=== PATIENT | female | born 1955 | race Caucasian/White ===

== ENCOUNTER 2019-04-13 06:15 | Day surgery (SDC) | payer OTHER ==
[~2019-04-13] VITALS: Ht 160 cm; Wt 61.7 kg
[~2019-04-13 06:15] MED LIST: AMOX875T PO; LR 1,000 ML IV ONE; ceFAZolin SOD 2 GM in IV 1 EA IV ONE
[2019-04-13] MEDS ORDERED: LIDOCAINE 2% INJ 100 MG/5 ML SDV (FOR ANES.) As Ordered ONE ×2 (06:34→08:04)
[2019-04-13] MEDS ORDERED: propofoL 200 MG/20 ML VIAL As Ordered ONE ×2 (06:34→08:04)
[2019-04-13] MEDS ORDERED: MIDAZOLAM INJ 2 MG/2 ML VIAL (J2250) As Ordered ONE ×2 (06:34→08:04)
[2019-04-13] MEDS ORDERED: fentaNYL 100 MCG/2 ML INJECTION (J3010) As Ordered ONE ×2 (06:35→08:04)
[2019-04-13] MEDS ORDERED: SCOPOLAMINE 1MG TRANSDERMAL PATCH As Ordered ONE (07:55)
[2019-04-13] MEDS ORDERED: ONDANSETRON 4MG/2ML VIAL (J2405) As Ordered ONE ×2 (08:04→09:20)
[2019-04-13] MEDS ORDERED: KETOROLAC 60 MG/2 ML VIAL (J1885) As Ordered ONE (08:04)
[2019-04-13] MEDS ORDERED: dexameTHASONE 4 MG/ML 1ML VIAL (J1100) As Ordered ONE ×2 (08:04→09:20)
[2019-04-13] MEDS ORDERED: SCOPOLAMINE 1MG TRANSDERMAL PATCH TOP ONE (08:15)
[2019-04-13] MEDS ORDERED: CONRAY-60 60% 50ML VIAL (Q9961) As Ordered ONE (09:12)
[2019-04-13] MEDS ORDERED: fentaNYL 100 MCG/2 ML INJECTION (J3010) IV PRN (10:30)
[2019-04-13] MEDS ORDERED: ONDANSETRON 4MG/2ML VIAL (J2405) IV PRN (10:30)
[2019-04-13] MEDS ORDERED: LR 1,000 ML IV SCH ×2 (10:30)
[2019-04-13] MEDS ORDERED: METOCLOPRAMIDE INJ 10MG/2ML VIAL (J2765) IV PRN (10:30)
[2019-04-13] MEDS ORDERED: PERCOCET 5MG/325MG TAB PO PRN (10:30)
--- NOTE | 2019-04-13 10:34 | REP ---
C-ARM VIEW OF THE ABDOMEN: C-arm view of the abdomen is performed. Wire and ureteral catheter are noted with the proximal ends in the mid and lower pelvocaliceal system. There is some contrast opacifying the left pelvocaliceal system which is mild to moderately dilated. Fluoroscopy time 39 seconds. Electronically Signed by Franklin Dickens MD 04/14/2019 11:21 A
[2019-04-13 12:45] VITALS: BP 140/72
--- NOTE | 2019-04-13 19:43 | RO ---
DATE OF PROCEDURE: 04/13/2019 PREPROCEDURE DIAGNOSIS: Left ureteral calculus. POSTPROCEDURE DIAGNOSIS: Left ureteral calculus. PROCEDURE: Cystoscopy with left retrograde pyelogram, ureteroscopic stone extraction, stent insertion. SURGEON: Dr. Nicoklas Jalloh CHILD SUPPORT AGENT: None ANESTHESIA: General. EBL: Less than 10 mL SPECIMEN: Calculus INDICATION FOR OPERATION: This is a 64-year-old white female with a distal left ureteral calculus. She had a stent placed preoperatively and was brought to the operating room today for stone extraction. DESCRIPTION OF PROCEDURE: The patient was anesthetized with general anesthesia, placed in lithotomy position, prepped with Betadine paint and draped in an aseptic manner. Time-out was then performed. A #22-Wallisian cystoscope was then inserted into the meatus under direct vision of a 30-degree lens to the bladder. The bladder mucosa appeared to be normal. The left ureteral stent was then grasped with forceps and brought out through the urethral meatus where a wire guide was passed through the lumen up to the renal pelvis. The stent was then removed. A semirigid ureteroscope was then advanced alongside the safety wire but no stone was encountered at that time. The ureter was evaluated up to the proximal ureter. The scope was then exchanged for a flexible ureteroscope through a tunneled dilator, which was passed over the working wire. The scope was then advanced up to the renal pelvis and individual calyces were examined. No stones were encountered. The scope was then retracted into the proximal urethra, and a blood clot was encountered. This was grasped with a basket and extracted. There was a stone present in that clot. The ureter was then examined on the way out and no further stones were encountered. The cystoscope was then backloaded over the safety wire and a #5-Wallisian double J stent was advanced over the wire and curled well in the renal pelvis and in the bladder when the wire was removed. The bladder was then drained, the cystoscope was removed, and the patient was awakened and sent to the recovery room in stable condition having tolerated the procedure well. THIEN
== END 2019-04-13 12:55 | disposition home or self-care (01) ==
LOC: M SDC 06:15
PROVIDERS: ATTEND Urology
DX: N20.0 Calculus of kidney (principal); N20.1 Calculus of ureter; Z88.2 Allergy status to sulfonamides
CPT/HCPCS: 52332; 52352; 74420; 82360; 88300; C1769; C1894; C2617; J0690; J1100; J2250; J2405; J2765; J3010; Q9961